=== PATIENT | female | born 2000 | race Caucasian/White ===

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

== ENCOUNTER 2019-11-30 05:08 | Emergency (ER) | payer OTHER ==
[~2019-11-30] VITALS: Ht 154.9 cm; Wt 47.6 kg
[2019-11-30 05:21] VITALS: BP 122/88
== END 2019-11-30 07:51 | disposition left against medical advice (07) ==
LOC: ER 05:08
DX: R10.9 Unspecified abdominal pain (principal); Z53.21 Procedure and treatment not carried out due to patient leaving prior to being seen by health care provider

== ENCOUNTER 2021-11-29 11:34 | Emergency (ER) | payer OTHER ==
[~2021-11-29] VITALS: Ht 157.5 cm; Wt 100.0 kg
[2021-11-29 11:50] VITALS: BP 125/85
[2021-11-29] MEDS ORDERED: ACETAMINOPHEN 325 MG TAB PO ONE (12:30)
[2021-11-29] MEDS ORDERED: SODIUM CHLORIDE 0.9% 1,000 ML IV ONE (12:30)
== END 2021-11-29 12:41 | disposition left against medical advice (07) ==
LOC: ER 11:34 → EDBD 11:34 → ER 12:39
DX: R55 Syncope and collapse (principal); Z53.29 Procedure and treatment not carried out because of patient's decision for other reasons
CPT/HCPCS: 82962; 93005